=== PATIENT | female | born 1935 | race Caucasian/White ===

== ENCOUNTER 2021-07-03 14:22 | Emergency (ER) | payer MEDICARE, SELFPAY ==
[2021-07-03 14:55] VITALS: BP 107/56; PULSE 76; RESP 18; TEMP 35.9; O2SAT 98; BMI 28.7
[2021-07-03 15:54] VITALS: BP 112/61; PULSE 81; RESP 16; TEMP 36.7; O2SAT 98
[2021-07-03 16:00] VITALS: BP 107/45; PULSE 69; RESP 16; TEMP 36.7; O2SAT 98
--- NOTE | 2021-07-03 16:06 | ECG_ITS ---
Test Reason : CRISIS Blood Pressure : / mmHG Vent. Rate : 067 BPM Atrial Rate : 067 BPM P-R Int : 196 ms QRS Dur : 116 ms QT Int : 418 ms P-R-T Axes : 080 -61 056 degrees QTc Int : 441 ms Normal sinus rhythm Pulmonary disease pattern Incomplete right bundle branch block Left anterior fascicular block Nonspecific ST abnormality Abnormal ECG No previous ECGs available Referred By: Lisset Barroso Electronically Signed By:KY NIEVES MD
--- NOTE | 2021-07-03 16:06 | ED.PSYCH ---
HPI - Psych General Chief Complaint: Psychiatric Symptoms Stated Complaint: Depressed Time Seen by Provider: 07/03/21 14:53 Source: patient and family Mode of arrival: ambulatory Limitations: no limitations History of Present Illness HPI Narrative: Patient comes to the emergency room accompanied by her daughter. Patient states that she has been having pain all over her body for 3 days. Patient denies chest pain, no shortness of breath, no abdominal pain. No UTI symptoms. Patient has decreased p.o. intake. According to the daughter, patient moved from [place] approximately 3 months ago. Patient used to live with her who is currently living in [place] and being treated for cancer. Patient is having a hard time living here in the [facility] and being far away from her . The family has noted that the patient has been depressed and is gradually getting worse. Related Data Allergies Allergy/AdvReac Type Severity Reaction Status Date / Time No Known Allergies Allergy Verified 07/03/21 16:06 Review of Systems Review of Systems: Constitutional : No Weight loss, No Fever, No Chills, No Night Sweats, No Fatigue, complaining of generalized malaise ENT/Mouth : No Hearing loss, No Ear Pain, No Nasal Congestion, No Sinus Pain, No Hoarseness, No sore throat, No Rhinorrhea, No Swallowing Difficulty Eyes: No Eye Pain, No Swelling, No Redness, No Foreign Body, No Discharge, No Vision Changes Cardiovascular : No Chest Pain, No SOB, No Dyspnea on Exertion, No Orthopnea, No Edema, No Palpitations Respiratory : No Cough, No Sputum, No Wheezing, No Smoke Exposure, No Dyspnea Gastrointestinal : No Nausea, No Vomiting, No Diarrhea, No Constipation, No abdominal Pain, No Hematochezia, No Melena Genitourinary : no irregular bleeding, No Dysuria, No Urinary Frequency, No Hematuria, No Urinary Incontinence, No Urgency, No Flank Pain, No Urinary Flow Changes, No Hesitancy Musculoskeletal : No joint pain, complaining of pain all over, No Joint Swelling Skin : No Skin Lesions, No rash Neuro : No Weakness, No Numbness, No Paresthesias, No Loss of Consciousness, No Dizziness, No Headache Psych : No Anxiety/Panic, No Depression, No SI/HI/AH/VH, No Social Issues, Heme/Lymph: No Bruising, No Bleeding,No Lymphadenopathy Endocrine : No Polyuria, No Polydipsia, No Temperature Intolerance PMFSH Past Medical History Medical History (Updated 07/03/21 @ 16:13 by Lisset Barroso MD) Dementia Hyperlipidemia Hypertension Social History Social History Advance Directives: No Advance Directives Information Provided: No Physical Exam Vital Signs: Vital Signs: Last Vital Signs Temp 96.7 F L 07/03/21 14:55 Pulse 76 07/03/21 14:55 Resp 18 07/03/21 14:55 BP 107/56 L 07/03/21 14:55 Pulse Ox 98 07/03/21 14:55 BMI result Body Mass Index 28.7 Const: Other: Appearance: Alert. Oriented X3. No acute distress. Eyes: Pupils equal, round and reactive to light. ENT: Pharynx normal. Neck: Normal inspection. Neck supple. No lymph nodes noted. No crepitus CVS: Normal heart rate and rhythm. Pulses normal. Normal S1 and S2 Respiratory: No respiratory distress. Breath sounds normal. No Wheezing. No rales Abdomen: Soft and nontender. No rigidity. No distention. Skin: Skin warm and dry. Normal skin color. Normal skin turgor. Extremities: No lower extremity edema. No Lacerations. No Rash Neuro: Oriented X 3. No motor deficit. No sensory deficit. Moving all extremities. No slurred speech. CN 2 through 12 grossly intact Psych: calm, cooperative, flat affect, seems depressed Course Course Course Narrative: At this time, we will go ahead and test the patient for influenza, COVID, and obtain labs to rule out an organic cause of diffuse body aches. Labs are normal, patient medically need [facility]. All the labs are pending. Behavioral health consult pending. Sign-out given to Dr. Gamble Discharge Plan Discharge Clinical Impression: Depression, Pain Patient Disposition: Still a Patient
[2021-07-03 16:48] LABS: MANUAL DIFF FLAG NO
[2021-07-03 16:50] LABS: Appearance Urine HAZY; Basophils Percent Auto 0.3 % (0-2); Color Urine YELLOW; Eosinophils Percent Auto 0.5 % (0-4); Glucose Urine UA NEG (NEG); Hematocrit 42.2 % (37.0-47.0); Hemoglobin 13.7 g/dl (12.0-16.0); Imm Gran Abs Auto 0.01 X10*3/uL (0.00-0.03); Imm Gran Pct Auto 0.1 % (0.0-0.4); Leukocyte Esterase Urine NEG (NEG); Lymphocytes Absolute Auto 2.5 X10*3/uL (1.2-4.9); Lymphocytes Percent Auto 32.6 % (20-40); Mean Corpuscular HGB Conc 32.5 g/dl (31.0-35.0); Mean Corpuscular Hemoglobin 29.5 pg (27.0-33.0); Mean Corpuscular Volume 90.8 fL (80.0-98.0); Mean Platelet Volume 10.2 fL (9.4-12.3); Monocytes Absolute Auto 0.6 X10*3/uL (0.1-1.2); Neutrophils Absolute Auto 4.4 x10*3/uL (2.0-8.3); Neutrophils Percent Auto 58.5 % (45-73); Nitrite Urine POS (NEG); Platelet Count 155 X10*3/uL (160-400); Red Blood Count 4.65 X10*6/uL (4.20-5.50); Red Cell Distribution Width 13.8 % (11.0-16.0); UACC Culture Trigger YES; Urine Blood NEG (NEG); Urine Ketones NEG (NEG); Urine Protein TRACE MG/DL (NEG-TRACE); White Blood Count 7.5 X10*3/uL (4.8-10.8)
[2021-07-03 16:56] LABS: Bacteria Urine 4+ /LPF; RBC Urine 0-2 /HPF (0); Squamous Epithelial Cell Urine TRACE /LPF
[2021-07-03 16:58] LABS: INTERNATIONAL NORM RATIO 1.1 (0.9-1.1); Prothrombin Time 12.1 SEC (9.9-13.0)
[2021-07-03 17:07] LABS: Amphetamine Screen Urine Not Detected (Not Detect); Barbiturates, Urine Not Detected (Not Detect); Benzodiazepines Screen Urine Not Detected (Not Detect); Cannabinoid Screen Urine Not Detected (Not Detect); Cocaine Screen Urine Not Detected (Not Detect); Fentanyl, urine Not Detected (Not Detect); Influenza A Negative (Negative); Influenza B2 Negative (Negative); Opiate Screen Urine Not Detected (Not Detect); Phencyclidine Screen Urine Not Detected (Not Detect)
[2021-07-03 17:08] LABS: COVID-19 Test Negative (Negative); IDNOW Serial# 55D5AD1C
[2021-07-03 17:10] LABS: Troponin-I High Sensitivity < 3.5 ng/L (<3.5-17.0)
[2021-07-03 17:12] LABS: Alanine Aminotransferase 18 U/L (0-31); Alkaline Phosphatase 61 U/L (39-117); Anion Gap 14 (12-20); Aspartate Amino Transferase 24 U/L (5-31); Bilirubin Direct 0.3 mg/dL (0.0-0.5); Bilirubin Total 0.7 mg/dL (0.0-1.0); Blood Urea Nitrogen 22 mg/dL (9-16); Calcium 9.8 mg/dL (8.4-10.2); Carbon Dioxide 26 mmol/L (22-29); Chloride 106 mmol/L (96-108); Creatinine Clr Calc Pharmacy 47.5; Estimated Glomerular Filt Rate > 60; Glucose Random 53 mg/dL (60-115); Magnesium 2.4 mg/dL (1.6-2.6); Potassium 4.9 mmol/L (3.3-5.1); Sodium 141 mmol/L (135-145); Total Protein 6.6 g/dL (6.5-8.0)
[2021-07-03 17:16] LABS: Glucose, Whole Blood 68 mg/dL (60-115)
[2021-07-03 17:24] LABS: TSH reflex Free T4 0.54 uIU/mL (0.32-4.0)
--- NOTE | 2021-07-03 17:31 | PC.NURSE ---
Patient given apple juice and sandwich for low blood glucose.
[2021-07-03 18:00] VITALS: BP 107/45; PULSE 77; RESP 16; TEMP 36.9; O2SAT 98
--- NOTE | 2021-07-03 18:12 | PHA.MEDREC ---
Pharmacy Consult ? Medication Reconciliation Pharmacy has completed the medication reconciliation. Medication list from Biju Miller who is a MD from [place].
[2021-07-03 22:11] VITALS: BP 92/48; PULSE 74; RESP 16; O2SAT 97
== END 2021-07-03 22:17 | disposition home or self-care (01) ==
PROVIDERS: Emergency Medicine; Emergency Provider Internal Medicine
DX: F32.A Depression, unspecified (principal); M79.10 Myalgia, unspecified site; Z20.822 Contact with and (suspected) exposure to COVID-19; I10 Essential (primary) hypertension; E78.5 Hyperlipidemia, unspecified; F03.90 Unspecified dementia, unspecified severity, without behavioral disturbance, psychotic disturbance, mood disturbance, and anxiety; Z79.82 Long term (current) use of aspirin; Z79.02 Long term (current) use of antithrombotics/antiplatelets; Z79.899 Other long term (current) drug therapy
CPT/HCPCS: 36415; 80048; 80076; 80307; 81001; 82947; 83735; 84443; 84484; 85025; 85610; 87086; 87502; 87635; 93005; 99285